=== PATIENT | male | born 1985 | race Caucasian/White ===

== ENCOUNTER 2019-06-05 11:03 | Emergency (ER) | payer OTHER ==
[~2019-06-05] VITALS: Ht 177.8 cm; Wt 90.7 kg
[2019-06-05] MEDS ORDERED: DOXYCYCLINE100 M3 PO (11:24)
== END 2019-06-05 11:36 | disposition home or self-care (01) ==
LOC: ED 11:03
DX: L03.213 Periorbital cellulitis (principal)

== ENCOUNTER 2020-09-18 20:09 | Emergency (ER) | payer OTHER ==
[~2020-09-18 20:09] MED LIST: DOXYCYCLINE100 M3 PO
[2020-09-19] MEDS ORDERED: CYCLOBENZAPRINE10 MG PO (00:15)
[2020-09-19] MEDS ORDERED: MEDROL DOSEPAK4 MG PO (00:15)
== END 2020-09-19 00:37 | disposition home or self-care (01) ==
LOC: ED 20:09
DX: M48.061 Spinal stenosis, lumbar region without neurogenic claudication (principal); M51.26 Other intervertebral disc displacement, lumbar region